=== PATIENT | female | born 1975 | race Two or more races ===

== ENCOUNTER 2025-03-27 22:09 | Emergency (ER) | payer OTHER, SELFPAY ==
[2025-03-27 22:12] VITALS: BP 152/91
[2025-03-27 23:48] LABS: % Eosinophils 0.8 % (0-6); % Immature Granulocytes 0.2 % (0-0.5); % Lymphocytes 36.3 % (20.5-51.1); % Neutrophils 52.7 % (42.2-75.2); Absolute Basophils 0.1 10^3/uL (0-0.2); Absolute Lymphocytes 1.9 10^3/uL (1.2-3.4); Absolute Monocytes 0.5 10^3/uL (0.1-0.6); Absolute Neutrophils 2.8 10^3/uL (1.4-6.5); Hematocrit 33.4 % (37.0-47.0); Hemoglobin 11.2 g/dL (12.0-16.0); Mean Corp Hgb Conc. 33.5 g/dL (33.0-37.0); Mean Corpuscular Hgb 27.7 pg (27.0-31.0); Mean Corpuscular Volume 82.7 fL (81.0-99.0); Mean Platelet Volume 11.1 fL (7.4-10.4); Nucleated Red Blood Cells % 0 %; Platelet Count 201 10^3/uL (130-400); Red Blood Cell Count 4.04 10^6/uL (4.20-5.40); Red Cell Dist. Width 15.5 % (11.5-14.5); White Blood Cell Count 5.2 10^3/uL (4.8-10.8)
[2025-03-28 00:12] LABS: Blood Urea Nitrogen 24 mg/dl (7-17); Calcium 9.4 mg/dl (8.4-10.2); Carbon Dioxide 32 mmol/L (22-30); Chloride 106 mmol/L (98-107); Glucose 91 mg/dl (70-99); Potassium 3.6 mmol/L (3.5-5.1); Sodium 141 mmol/L (135-145); eGFR > 60.00
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
[2025-03-28 00:17] LABS: Alcohol None Detected
[2025-03-28 01:09] LABS: Urine Albumin Negative (Neg - Trace); Urine Bilirubin Negative (Negative); Urine Character Clear (Clear); Urine Color Yellow; Urine Glucose Negative (Negative); Urine Ketone Negative (Negative); Urine Leukocyte Negative (Negative); Urine Nitrite Negative (Negative); Urine Occult Blood Negative (Negative); Urine Specific Gravity 1.005 (<1.030); Urine Urobilinogen Negative (Neg - 1+)
[2025-03-28] MEDS: ZYPREXA 5 MG IM (01:22)
[2025-03-28 01:32] LABS: Amphetamines Negative (Negative); Barbiturates Negative (Negative); Benzodiazepines Positive (Negative); Buprenorphine Negative (Negative); Cocaine Negative (Negative); Marijuana Negative (Negative); Methadone Negative (Negative); Methamphetamines Negative (Negative); Opiates Negative (Negative); Phencyclidine Negative (Negative); Tricyclic Antidepressants Negative (Negative)
[2025-03-28 01:43] LABS: Fentanyl, Urine Negative (Negative)
[2025-03-28 07:00] VITALS: BP 160/110
--- NOTE | 2025-03-28 07:30 | EDRN ---
Patient calm and cooperative at present time. Attempted x4 to obtain Depakote level without success. notified. Order to be d/c'd.
[2025-03-28] MEDS: DEPAKOTE SPRINKLE 250 MG PO (08:14)
[2025-03-28] MEDS: DEPAKOTE SPRINKLE 125 MG PO (08:15)
[2025-03-28] MEDS: ATIVAN 2 MG IM (08:46)
--- NOTE | 2025-03-28 08:55 | EDRN ---
Patient purposefully incontinent of urine. Patient stated 'I felt like it' when asked why she urinated in the bed. Explained to patient that there is a bathroom that she has access to when she needs to urinate. Patient stated 'I want you to clean
me.'
Patient banging on the wall behind her bed demanding that we get her belongings at [facility] and bring them to her. Not responding to verbal cues. notified. Patient medicated with Ativan 2mg IM.
[2025-03-28 09:04] LABS: Glucose - Point of Care 73 mg/dl (70-99)
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
[2025-03-28] MEDS: SYNTHROID PO (12:00)
[2025-03-28] MEDS: VIMPAT PO (12:00)
[2025-03-28 13:44] LABS: Glucose - Point of Care 88 mg/dl (70-99)
--- NOTE | 2025-03-28 13:59 | W.PN.UPDATE ---
Update Note
Progress Note Update
attempted to talk to patient this afternoon but she was still groggy. her speech was slurred to the extent that i could not understand very much of what she said. what i was able to understand was as follows : that no one likes her at the tx; no one
cares about her anywhere; that she has no children but has two nieces but she does not know where they are; that she wants us to get her stuff back from the tx [place]; she was oriented to person place and time. her lunch arrived and nursing helped to
diaper her and let her eat. i will return later after she has eaten to try and speak with her again. i talked to the nurse at [facility] who took care of her yesterday she was only there for one day and he said she was extremely agitated from the
[place]. he said her speech at that time was 'mildly slurred.' basically he told me what is described in the 302. i asked him if he could get me any of her prior hx. she arrived there on . from [facility] and she was described as having mild
intellectual disability, schizoaffective disorder, incontinent of blowel and bladder, hypothyriod, hld. there were bruises noted on her left abdomen. she was shouting and screaming in her room later on during the day and patient is listed as having
said 'this is what i do'. i asked if there were any psych meds in her list besides depakote which can be for sz and she does have a sz disorder. there were no antipsychotics listed in her medication regimen. nurse reported that she was calm during
the day yesterday but evening was when the agitation began and 302 was petitioned.
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
[2025-03-28] MEDS: ZONEGRAN 100 MG PO (16:42)
[2025-03-28] MEDS: DEPAKOTE SPRINKLE 375 MG PO ×2 (16:43→21:26)
[2025-03-28 16:45] VITALS: BP 164/82
[2025-03-28 18:03] LABS: Glucose - Point of Care 128 mg/dl (70-99)
[2025-03-28] MEDS: VIMPAT 200 MG PO (21:24)
[2025-03-28] MEDS: ABILIFY 2 MG PO (21:25)
[2025-03-28] MEDS: MELATONIN 5 MG PO (21:25)
[2025-03-28 21:30] VITALS: BP 121/90
[2025-03-28 21:53] LABS: Depakane 69.5 ug/ml (50.0-120.0)
[2025-03-28 22:01] LABS: ALT (SGPT) 21 U/L (0-35); AST (SGOT) 37 U/L (14-36); Albumin 3.5 g/dl (3.5-5.0); Alkaline Phosphatase 72 U/L (38-126); Direct Bilirubin 0.3 mg/dl (0.0-0.4); Total Bilirubin 0.5 mg/dl (0.2-1.3)
[2025-03-28 22:32] LABS: TSH Reflex To Free T4 1.91 uIU/ml (0.47-4.68)
[2025-03-28 22:56] LABS: Glucose - Point of Care 115 mg/dl (70-99)
[2025-03-29] MEDS: SYNTHROID 50 MCG PO (06:12)
--- NOTE | 2025-03-29 06:15 | ED.CRISIS ---
ED Crisis Note
ED Crisis Note
Subjective:
49 yo with schizophrenia presenting for homicidal ideations and aggressive behavior from [facility]
Objective:
Resting comfortably, cooperative overnight
Assessment/Plan:
Currently under 302 status, pending acceptance to facility, versus return to [facility]. Continue to monitor and administer her routine medication
[2025-03-29 07:36] LABS: Glucose - Point of Care 74 mg/dl (70-99)
[2025-03-29] MEDS: PEPCID 20 MG PO (08:23)
[2025-03-29] MEDS: ZONEGRAN 100 MG PO (08:23)
[2025-03-29] MEDS: VIMPAT 200 MG PO (08:23)
[2025-03-29] MEDS: DEPAKOTE SPRINKLE 375 MG PO ×2 (08:24→16:37)
--- NOTE | 2025-03-29 09:55 | W.PN.UPDATE ---
Update Note
Progress Note Update
patient seen chart reviewed. now that ms mckenna is awake and alert, she has been generally cooperative. she is taking meds as prescribed. she is apparently understanding that she needs medication to control her mood and has started on abilify.
she is eating and drinking adequately. we are holding a 303 but she stipulated to me that she will not oppose up to 15 days in patient. depakote level is 69+ would continue w current meds considering increase in abilify depending on efficacy and
tolerance. the hearing is at noon. tsh is normal vitamin levels inc b12 folate vit d are pending.
[2025-03-29 10:25] VITALS: BP 165/102
--- NOTE | 2025-03-29 11:38 | W.PN.UPDATE ---
Update Note
Progress Note Update
patient committed under section 303 to up to 14 days in patient psych hospitalization. she stipulated to this agreement. she has been cooperative . staff is representing her to local psych facilities for admit.
[2025-03-29 16:03] LABS: Vitamin D, 25-OH*** 51.5 ng/mL (30-80)
[2025-03-29 16:36] LABS: Vitamin B12 611 pg/ml (239-931)
[2025-03-29 18:26] LABS: Folate > 20.0 ng/ml (2.76-20)
== END 2025-03-29 18:49 ==
LOC: EMR 22:09
PROVIDERS: Emergency Medicine; Physician Assistant; CONSULT PHYSICIAN Psychiatry & Neurology Psychiatry; EMERGENCY PHYSICIAN Emergency Medicine; FAMILY PHYSICIAN Internal Medicine
DX: R45.6 Violent behavior (principal); Z79.899 Other long term (current) drug therapy; F20.9 Schizophrenia, unspecified; E11.9 Type 2 diabetes mellitus without complications; E03.9 Hypothyroidism, unspecified; E86.0 Dehydration; Z91.51 Personal history of suicidal behavior
CPT/HCPCS: 99283; 96372; 80048; 80076; 80164; 80306; 80307; 81003; 82077; 82306; 82607; 82746; 82962; 84443; 85025; J2358